=== PATIENT | male | born 1970 | race Caucasian/White ===

== ENCOUNTER 2017-12-26 13:37 | Emergency (ER) | payer OTHER, MEDICAID ==
[~2017-12-26] VITALS: Ht 177.8 cm; Wt 82.0 kg
[2017-12-26 13:46] VITALS: BP 158/91; PULSE 70; RESP 18; TEMP 98.1; O2SAT 99
--- NOTE | 2017-12-26 14:21 | PD ---
HPI Chief Complaint: Back/ Neck Pain or Injury Time Seen by Provider: 13:57 Travel History International Travel<30 days: No Contact w/Intl Traveler<30days: No Traveled to known affect area: No History of Present Illness HPI 47-year-old male came to the emergency room with history of lower back pain radiating down his left leg mostly anteriorly and into the groin area for past 5 -6 days. Patient says that he was taking it easy initial couple days after which the pain started to get better. But then he started to go to work and lift some heavy objects and the pain started again. This time the pain has mostly been localized to his lower back area. Patient says every time he turns or changes position there is a sharp shooting pain. Today he needed to be supported by 2 other people in order to get up and take a few steps. He was brought like that in the car by his relatives. Patient has had back issues but it has never been to this extent in the past. No history of fall otherwise. Vital signs are stable. No bowel or bladder incontinence. Patient is not an IV drug abuser. [facility] Past Medical History Narrative Medical List of his past medical, surgical, social and family history is reviewed from the nursing note. Social History Tobacco Use: No Allergies-Medications (Allergen,Severity, Reaction): Coded Allergies: No Known Allergies (Unverified , 12/26/17) Comments No known drug allergies Reported Meds & Prescriptions Reported Meds & Active Scripts Active Flexeril (Cyclobenzaprine HCl) 10 Mg Tab 10 Mg PO TID Medrol Dosepak (Methylprednisolone) 4 Mg Dspk 4 Mg PO DIRECTED Per Pharmacist direction Ibuprofen 600 Mg Tab 600 Mg PO Q6H PRN Narrative Medication Awaiting for the nurse to do the med reconciliation. Review of Systems Except as stated in HPI: all other systems reviewed are Neg Musculoskeletal: Positive: Pain Physical Exam Narrative GENERAL: Awake, alert, moderate distress SKIN: Focused skin assessment warm/dry. HEAD: Atraumatic. Normocephalic. EYES: Pupils equal and round. No scleral icterus. No injection or drainage. ENT: No nasal bleeding or discharge. Mucous membranes pink and moist. NECK: Trachea midline. No JVD. CARDIOVASCULAR: Regular rate and rhythm. No murmur appreciated. RESPIRATORY: No accessory muscle use. Clear to auscultation. Breath sounds equal bilaterally. GASTROINTESTINAL: Abdomen soft, non-tender, nondistended. Hepatic and splenic margins not palpable. MUSCULOSKELETAL: No obvious deformities. No clubbing. No cyanosis. No edema. Paraspinal muscle spasm mostly along the thoracolumbar area NEUROLOGICAL: Awake and alert. No obvious cranial nerve deficits. Motor grossly within normal limits. Normal speech. Strong dorsiflexion and plantar flexion against resistance of the left foot. Negative SLR PSYCHIATRIC: Appropriate mood and affect; insight and judgment normal. Data Data Last Documented VS Orders Orders Spine, Lumbar Comp W/Obliq (12/26/17 ) Orphenadrine Inj (Norflex Inj) (12/26/17 14:30) Ketorolac Inj (Toradol Inj) (12/26/17 14:30) Ed Discharge Order (12/26/17 16:06) [facility] [place] Medical Decision Making Medical Screen Exam Complete: Yes Emergency Medical Condition: Yes Medical Record Reviewed: Yes Differential Diagnosis Lumbar radiculopathy Narrative Course 3:38 PM x-ray of the lumbar spine shows an incidental finding of renal calculi in the right. Otherwise no other abnormality. Patient was given IM Toradol and IM Norflex. He requested not to get any opiates. I just reassessed him and asked him to stand up and take few steps. Patient was able to stand up and take a few steps with much difficulty although independently. At this point I am comfortable discharging him home on medication prescription. He will need to follow-up with his primary care physician as well. Procedures EKG Prior to Arrival: No Diagnosis Primary Impression: Lumbar radicular pain Additional Impression: Paraspinal muscle spasm Referrals: Primary Care Physician Additional Instructions: Return to the ER if condition worsens or any other new concerns. Otherwise take the medication as per the prescription direction. He should not be lifting anything heavy or pushing heavy objects. Try to get as much bed rest on a firm surface as possible. Follow-up with primary care physician and if the symptoms continue then have your primary care order an outpatient MRI. Med/Other Pt SpecificInfo: Prescription(s) given Scripts Cyclobenzaprine (Flexeril) 10 Mg Tab 10 MG PO TID for Muscle Spasm, #15 TAB 0 Refills Prov: Norma Singh MD 12/26/17 Methylprednisolone Dosepak (Medrol Dosepak) 4 Mg Dspk 4 MG PO DIRECTED, #1 DSPK 0 Refills Per Pharmacist direction Prov: Norma Singh MD 12/26/17 Ibuprofen (Ibuprofen) 600 Mg Tab 600 MG PO Q6H Y for Pain/Inflammation, #40 TAB 0 Refills Prov: Norma Singh MD 12/26/17 Disposition: 01 DISCHARGE HOME Condition: Stable Norma Singh MD December 26, 2017 14:21
[2017-12-26] MEDS ORDERED: KETOROLAC TROMETHAMINE 60 MG/2 ML (IM) VIAL IM ONE (14:30)
[2017-12-26] MEDS ORDERED: ORPHENADRINE INJ 60 MG/2 ML AMP IM ONE (14:30)
--- NOTE | 2017-12-26 15:15 | RADRPT ---
EXAM DATE/TIME: 12/26/2017 14:55 [facility] COMPARISON: No previous studies available for comparison. INDICATIONS : Pain. MEDICAL HISTORY : None. SURGICAL HISTORY : None. ENCOUNTER: Initial ACUITY: 3 days PAIN SCORE: 8/10 LOCATION: Lumbar spine. FINDINGS: 5 views of the lumbar spine. Vertebral body height and shape within normal limits. No evidence of spo ndylolisthesis. 3 mm calcific density in the right hemiabdomen indicating possible right renal calcul us. CONCLUSION: Possible right renal calculus. Lumbar spine series otherwise within normal limits. Mikhail Valdez MD on December 26, 2017 at 15:11 Board Certified Radiologist. This report was verified electronically.
[2017-12-26] MEDS ORDERED: CYCL10TA PO (15:41)
[2017-12-26] MEDS ORDERED: MEDR4PAK PO (15:41)
[2017-12-26] MEDS ORDERED: IBUP-232 PO (15:41)
== END 2017-12-26 16:25 | disposition home or self-care (01) ==
LOC: NEPD 13:37
DX: M54.16 Radiculopathy, lumbar region (principal); M62.830 Muscle spasm of back
CPT/HCPCS: 72110; 96372; 99283; J1885; J2360